=== PATIENT | male | born 1980 | race African-American/Black ===

== ENCOUNTER 2018-01-13 19:32 | Emergency (ER) | payer OTHER, SELFPAY | END 2018-01-13 20:10 | disposition home or self-care (01) | LOC: NAV ERS 19:32 | DX: A59.03 Trichomonal cystitis and urethritis (principal); F17.210 Nicotine dependence, cigarettes, uncomplicated | CPT/HCPCS: 99283 ==

== ENCOUNTER 2018-09-24 13:58 | Emergency (ER) | payer OTHER, SELFPAY | END 2018-09-24 15:00 | disposition home or self-care (01) | LOC: NAV ERS 13:58 | DX: B34.9 Viral infection, unspecified (principal); F17.210 Nicotine dependence, cigarettes, uncomplicated | CPT/HCPCS: 87804; 99283 ==

== ENCOUNTER 2018-10-18 16:54 | Emergency (ER) | payer SELFPAY ==
[2018-10-18] MEDS ORDERED: Ibuprofen 800 MG TAB ONE (17:06)
== END 2018-10-18 17:10 | disposition home or self-care (01) ==
LOC: NAV ERS 16:54
DX: B34.9 Viral infection, unspecified (principal); F17.210 Nicotine dependence, cigarettes, uncomplicated
CPT/HCPCS: 99283

== ENCOUNTER 2019-03-01 23:25 | Emergency (ER) | payer SELFPAY ==
[2019-03-02] MEDS ORDERED: HYDROcodone/Acetaminophen 5/325 mg Tablet ONE (00:11)
== END 2019-03-02 00:18 | disposition home or self-care (01) ==
LOC: NAV ERS 23:25
DX: M79.642 Pain in left hand (principal); F41.9 Anxiety disorder, unspecified; F32.9 Major depressive disorder, single episode, unspecified; F17.210 Nicotine dependence, cigarettes, uncomplicated; Z79.899 Other long term (current) drug therapy
CPT/HCPCS: 99282